=== PATIENT | female | born 1965 | race Caucasian/White ===

== ENCOUNTER → 2019-10-11 11:07 | Outpatient (CLI) | payer MEDICARE, MEDICAID, SELFPAY ==
[2019-10-11 13:22] LABS: Cholesterol 298 mg/dL (140-199); HDL Cholesterol 45 mg/dL (40-60)
[2019-10-11 13:38] LABS: Free T3, Triiodothyronine Free 4.07 pg/mL (2.77-5.27); Free T4, Direct Thyroxine 0.77 ng/dL (0.78-2.19)
[2019-10-11 13:45] LABS: Triglycerides 1223 mg/dL (35-150)
[2019-10-11 13:52] LABS: Thyroid Stimulating Hormone 7.54 uIU/mL (0.47-4.68)
[2019-10-11 16:48] LABS: Vitamin D 25 Hydroxy (D3) 14.8 ng/mL (30.0-100.0)
== END ==
PROVIDERS: PCP Family Medicine; Referring Provider Family Medicine; Visit Provider Family Medicine
DX: E55.9 Vitamin D deficiency, unspecified (principal); E66.3 Overweight; Z13.29 Encounter for screening for other suspected endocrine disorder; E03.9 Hypothyroidism, unspecified; R79.89 Other specified abnormal findings of blood chemistry
CPT/HCPCS: 36415; 80061; 82306; 83735; 84439; 84443; 84481

== ENCOUNTER → 2019-12-06 15:07 | Outpatient (CLI) | payer MEDICARE, MEDICAID, SELFPAY ==
[2019-12-06 16:08] LABS: Add Manual Diff / Slide Review NO; Basophils Absolute Auto 100 /uL (0-100); Basophils Percent Auto 1.4 % (0-2); Eosinophils Absolute Auto 500 /uL (0-450); Hematocrit 38.4 % (36-46); Hemoglobin 12.7 g/dL (12.0-16.0); Lymphocytes Absolute Auto 2600 /uL (1100-4500); Lymphocytes Percent Auto 40.6 % (25-40); Mean Corpuscular Hemoglobin 28.9 PG (26-34); Mean Corpuscular Volume 87.6 fL (80-100); Monocytes Absolute Auto 500 /uL (0-900); Monocytes Percent Auto 8.4 % (3-14); Neutrophils Absolute Auto 2700 /uL (1500-7000); Neutrophils Percent Auto 42.6 % (50-75); Platelet Count 345 X10^3/uL (150-400); Red Blood Cell Count 4.38 X10^6/uL (4.0-5.2); Red Cell Distribution Width 14.3 % (11.6-14.8); White Blood Cell Count 6.4 X10^3/uL (4.5-11.0)
[2019-12-06 16:36] LABS: Alanine Aminotransferase 22 IU/L (<35); Albumin 4.2 g/dL (3.5-5.0); Albumin Globulin Ratio 1.4 (1.0-2.8); Alkaline Phosphatase 144 U/L (38-126); Aspartate Aminotransferase 21 IU/L (14-36); Bilirubin Total 0.3 mg/dL (0.2-1.3); Blood Urea Nitrogen 17 mg/dL (7-17); Calcium 9.2 mg/dL (8.4-10.2); Carbon Dioxide 23 mmol/L (22-32); Chloride 106 mmol/L (98-107); Estimated Glomerular Filt Rate > 60.0 mL/min (>60); Globulin 3.1 g/dL (1.7-4.1); Glucose 186 mg/dL (70-100); HDL Cholesterol 51 mg/dL (40-60); HEMOLYSIS < 15 (0-50); Magnesium 1.8 mg/dL (1.6-2.3); Potassium 3.5 mmol/L (3.4-5.1); Sodium 139 mmol/L (137-145); Total Protein 7.3 g/dL (6.3-8.2)
[2019-12-06 16:51] LABS: Vitamin D 25 Hydroxy (D3) 16.7 ng/mL (30.0-100.0)
[2019-12-06 16:54] LABS: Free T3, Triiodothyronine Free 3.17 pg/mL (2.77-5.27); Free T4, Direct Thyroxine 0.65 ng/dL (0.78-2.19)
[2019-12-06 17:07] LABS: Thyroid Stimulating Hormone 6.18 uIU/mL (0.47-4.68)
[2019-12-06 17:14] LABS: Cholesterol 361 mg/dL (140-199); Triglycerides 1031 mg/dL (35-150)
== END ==
PROVIDERS: PCP Family Medicine; Referring Provider Family Medicine; Visit Provider Family Medicine
DX: E03.9 Hypothyroidism, unspecified (principal); E55.9 Vitamin D deficiency, unspecified; E87.6 Hypokalemia; E78.2 Mixed hyperlipidemia
CPT/HCPCS: 36415; 80053; 80061; 82306; 83735; 84439; 84443; 84481; 85025